=== PATIENT | male | born 1975 | race African-American/Black ===

== ENCOUNTER 2017-08-29 13:33 | Emergency (ER) | payer MEDICARE, MEDICAID ==
[2017-08-29] MEDS ORDERED: IPRATROPIUM/ALBUTEROL 0.5-2.5 MG/3 ML AMPUL NEB ONE ×2 (13:47)
--- NOTE | 2017-08-29 13:49 | ER Document Report ---
ED Respiratory Problem - General Chief Complaint: Shortness Of Breath Stated Complaint: DIFFICULTY BREATHING Time Seen by Provider: 08/29/17 13:37 Notes: The patient is a 42-year-old male, past medical history extensive ALS, presents by EMS after his mom called 911 after he was having trouble breathing. He was found to be satting 76% on RA and retracting when EMS arrived. He was placed on a 15 L nonrebreather and his oxygenation and breathing improved. Patient is DNR and DNI and receives home hospice. Patient is nonverbal, but communicates using a tablet with the mom. - Related Data Allergies/Adverse Reactions: shellfish derived Allergy (Verified 08/29/17 14:10) iodine Adverse Reaction (Verified 08/29/17 14:10) Past Medical History - General Information source: Patient, Relative, Emergency Med Personnel - Social History Smoking Status: Unknown if Ever Smoked Family History: Reviewed & Not Pertinent Review of Systems - Review of Systems -: Yes ROS unobtainable due to patient's medical condition Physical Exam - Vital signs Vitals: Resp Pulse Ox 30 H 100 08/29/17 13:43 08/29/17 13:43 - Notes Notes: PHYSICAL EXAMINATION: GENERAL: Mild respiratory distress. HEAD: Atraumatic, normocephalic. EYES: Pupils equal round and reactive to light, extraocular movements intact, sclera anicteric, conjunctiva are normal. ENT: nares patent, oropharynx clear without exudates. Moist mucous membranes. NECK: Normal range of motion, supple without lymphadenopathy LUNGS: Tachypneic, retracting, diffuse wheezing. HEART: Tachycardia. ABDOMEN: Soft, nontender, normoactive bowel sounds. No guarding, no rebound. No masses appreciated. EXTREMITIES: Normal range of motion, no pitting or edema. No cyanosis. NEUROLOGICAL: Awake and alert. Non-verbal. SKIN: Warm, Dry, normal turgor, no rashes or lesions noted. Course - Re-evaluation Re-evalutation: 08/29/17 14:30 Pt's primary care physician is Dr. Alanis. Spoke to about goals of care. She confirms the patient is DNR and DNI, but antibiotics and BiPap are part of his wishes. Dr. Bhatia, who is covering for Dr. Alanis , was in the emergency room and spoke to patient and . They would like to improve his breathing and be sent home with home hospice. 08/29/17 14:37 Pt began to have worsening shallow respirations and became hypoxic despite BiPAP and 100% FiO2. He began to become bradycardic and his heart stopped at 14:37. Bedside US confirmed no cardiac motion. Time of called at 14:37 with mother and friend at bedside. certificate filled out by myself. RN called [facility]. - Vital Signs Vital signs: Temp Pulse Resp BP Pulse Ox 123 H 27 H 100 08/29/17 13:50 08/29/17 13:50 08/29/17 13:50 - Laboratory Result Diagrams: 08/29/17 13:50 08/29/17 14:33 Laboratory results interpreted by me: 08/29/17 08/29/17 13:50 14:33 RDW 14.5 H Seg Neuts % (Manual) 28 L Lymphocytes % (Manual) 55 H Sodium 147.9 H Creatinine 0.46 L Glucose 195 H Direct Bilirubin 0.5 H - Diagnostic Test Radiology reviewed: Image reviewed, Reports reviewed Radiology results interpreted by me: CXR: NAD Critical Care Note - Critical Care Note Total time excluding time spent on procedures (mins): 35 Discharge - Discharge Clinical Impression: Shortness of breath Disposition:
[2017-08-29] MEDS ORDERED: MORPHINE SULFATE 10 MG/ML INJ IV ONE (13:52)
[2017-08-29 14:22] LABS: HEMATOCRIT 47.1 % (37.9-51.0); HEMOGLOBIN 15.1 g/dL (13.5-17.0); HGB HCT DIFFERENCE -1.8; MEAN CORPUSCULAR HEMOGLOBIN 29.5 pg (27.0-33.4); MEAN CORPUSCULAR VOLUME 92 fl (80-97); RED BLOOD COUNT 5.11 10^6/uL (4.35-5.55); RED CELL DISTRIBUTION WIDTH 14.5 % (11.5-14.0); WHITE BLOOD COUNT 6.9 10^3/uL (4.0-10.5)
--- NOTE | 2017-08-29 14:28 | RADIOLOGY REPORT (SQ) ---
EXAM DESCRIPTION: CHEST SINGLE VIEW COMPLETED DATE/TIME: 08/29/2017 2:16 pm REASON FOR STUDY: hypoxia COMPARISON: None. NUMBER OF VIEWS: One view. TECHNIQUE: Single frontal radiographic view of the chest acquired. LIMITATIONS: None. FINDINGS: LUNGS AND PLEURA: No opacities, masses or pneumothorax. No pleural effusion. MEDIASTINUM AND HILAR STRUCTURES: No masses. Contour normal. HEART AND VASCULAR STRUCTURES: Heart normal in size. Normal vasculature. BONES: No acute findings. HARDWARE: None in the chest. OTHER: No other significant finding. IMPRESSION: NO SIGNIFICANT RADIOGRAPHIC FINDING IN THE CHEST. TECHNICAL DOCUMENTATION: JOB ID: [id number] [employer]- All Rights Reserved
[2017-08-29 14:44] LABS: BASOPHILS % (MANUAL) 0 % (0-2); EOSINOPHILS % (MANUAL) 2 % (0-6); LYMPHOCYTES % (MANUAL) 55 % (13-45); TOTAL CELLS COUNTED 100
[2017-08-29 14:45] LABS: TOXIC GRANULATION SLIGHT
[2017-08-29 15:00] LABS: ALANINE AMINOTRANSFERASE 42 U/L (21-72); ALBUMIN 4.3 g/dL (3.5-5.0); ALKALINE PHOSPHATASE 76 U/L (38-126); ANION GAP 18 (5-19); ASPARTATE AMINO TRANSFERASE 26 U/L (17-59); BILIRUBIN,DIRECT 0.5 mg/dL (0.0-0.4); BILIRUBIN,TOTAL 1.1 mg/dL (0.2-1.3); BLOOD UREA NITROGEN 10 mg/dL (7-20); CALCIUM 9.4 mg/dL (8.4-10.2); CARBON DIOXIDE 28 mmol/L (22-30); CHLORIDE 102 mmol/L (98-107); CREATININE RESULT 0.46 mg/dL (0.52-1.25); GLUCOSE 195 mg/dL (75-110); POTASSIUM 4.3 mmol/L (3.6-5.0); SODIUM 147.9 mmol/L (137-145); TOTAL PROTEIN 7.2 g/dL (6.3-8.2)
[2017-08-29 18:00] VITALS: BP 163/114
--- NOTE | 2017-08-31 06:04 | EKG REPORT ---
SEVERITY:- OTHERWISE NORMAL ECG - SINUS TACHYCARDIA LEFT AXIS DEVIATION : Confirmed by: Katlyn Ferrer MD 31-Aug-2017 06:02:33
== END 2017-08-29 15:00 | disposition expired ==
LOC: ER 13:33
DX: R06.02 Shortness of breath (principal); R06.00 Dyspnea, unspecified; G12.21 Amyotrophic lateral sclerosis; R05 Cough; R50.9 Fever, unspecified; Z66 Do not resuscitate; Z91.013 Allergy to seafood
CPT/HCPCS: 93005; 94640 ×2; 99291; 96374; 36415; 87040; 85025; 80053; 71010; 93010; 94660; J2270; A9270; J7620